=== PATIENT | female | born 1940 | race American Indian/Alaskan Native ===

== ENCOUNTER 2017-04-01 13:58 | Emergency (ER) | payer MEDICARE ==
[2017-04-01 16:16] LABS: Albumin 4.1 g/dL (3.9-5); Albumin/Globulin Ratio 0.9 %; Bilirubin,Total 0.3 mg/dL (0.1-1.2); Calcium 9.6 mg/dL (8.4-10.2); Chloride 104.8 mmol/L (98-107); Potassium 5.6 mmol/L (3.6-5.0); Total Protein 8.7 g/dL (6.3-8.2)
[2017-04-01 16:22] LABS: Basophils % (Auto) 0.5 % (0.0-1.8); Eosinophils % (Auto) 1.8 % (0.0-4.3); Hematocrit 34.3 % (30.3-42.9); Hemoglobin 11.4 gm/dl (10.1-14.3); Mean Corpuscular HGB Conc 33 % (30-34); Mean Corpuscular Volume 76 fl (79-97); Platelet Count 240 K/mm3 (140-440); Red Blood Count 4.54 M/mm3 (3.65-5.03); Red Cell Distribution Width 19.2 % (13.2-15.2); White Blood Count 9.1 K/mm3 (4.5-11.0)
[2017-04-01 16:25] LABS: Mean Corpuscular Hemoglobin 25 pg (28-32)
[2017-04-01] MEDS ORDERED: LOPRESSOR IV ONE (21:04)
[2017-04-01 21:11] LABS: Bilirubin,Urine NEG (Negative); Blood,Urine SM (Negative); Ketones,Urine NEG (Negative); Leukocyte Esterase,Urine NEG (Negative); Nitrite,Urine NEG (Negative); Urobilinogen,Urine < 2.0 mg/dL (<2.0)
[2017-04-01] MEDS ORDERED: CATAPRES PO ONE (21:49)
--- NOTE | 2017-04-01 21:56 | Emergency Department Report ---
ED Female HPI - General Chief complaint: Urogenital-Female Stated complaint: INCONTINENCE ISSUE Time Seen by Provider: 04/01/17 20:45 Source: family Mode of arrival: Ambulatory Limitations: Other - History of Present Illness MD Complaint: dysuria -: Gradual, days(s) (3) Location: other (none) Radiation: other (none) Severity: mild Severity scale (0 -10): 2 Quality: cramping Consistency: intermittent Worsens with: urination Are you Now?: No Associated Symptoms: denies other symptoms - Related Data Sexually active: No Previous Rx's Medication Instructions Recorded Last Taken Type Cephalexin [Keflex] 500 mg PO Q12HR #14 cap 04/01/17 Unknown Rx Allergies Allergy/AdvReac Type Severity Reaction Status Date / Time No Known Allergies Allergy Verified 04/01/17 15:30 ED Review of Systems ROS: Stated complaint: INCONTINENCE ISSUE Other details as noted in HPI Comment: All other systems reviewed and negative Respiratory: no symptoms reported Endocrine: no symptoms reported Gastrointestinal: other (none) Genitourinary: urgency, dysuria ED Past Medical Hx - Past Medical History Previous Medical History?: Yes Hx Hypertension: Yes Hx Diabetes: Yes Additional medical history: 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 - Surgical History Past Surgical History?: Yes - Social History Smoking Status: Former Smoker - Medications Home Medications: Home Medications Medication Instructions Recorded Confirmed Last Taken Type Cephalexin [Keflex] 500 mg PO Q12HR #14 cap 04/01/17 Unknown Rx ED Physical Exam - General Limitations: Other (deaf) General appearance: in no apparent distress - Head Head exam: Present: atraumatic, normocephalic - Eye Eye exam: Present: normal appearance, PERRL - ENT ENT exam: Present: normal exam, normal orophraynx - Neck Neck exam: Present: normal inspection - Respiratory Respiratory exam: Present: normal lung sounds bilaterally - Cardiovascular Cardiovascular Exam: Present: regular rate, normal rhythm - GI/Abdominal GI/Abdominal exam: Present: soft, normal bowel sounds - Rectal Rectal exam: Present: deferred - Extremities Exam Extremities exam: Present: normal inspection - Back Exam Back exam: Present: normal inspection - Neurological Exam Neurological exam: Present: alert, oriented X3, CN II-XII intact - Skin Skin exam: Present: warm, dry ED Course Vital Signs 04/01/17 04/01/17 04/01/17 15:30 20:45 21:47 Temperature 98.3 F Pulse Rate 81 70 69 Respiratory 18 20 18 Rate Blood Pressure 210/74 Blood Pressure 186/58 182/56 [Right] O2 Sat by Pulse 100 100 99 Oximetry ED Medical Decision Making - Lab Data Result diagrams: 04/01/17 15:42 04/01/17 15:42 Critical care attestation.: If time is entered above; I have spent that time in minutes in the direct care of this critically ill patient, excluding procedure time. ED Disposition Clinical Impression: Acute cystitis Disposition: DC-01 TO HOME OR SELFCARE Is pt being admited?: No Does the pt Need Aspirin: No Condition: Stable Prescriptions: Cephalexin [Keflex] 500 mg PO Q12HR #14 cap Referrals: RADHA VARGAS MD [Primary Care Provider] - 3-5 Days
[2017-04-01 22:27] VITALS: BP 191/62
== END 2017-04-01 22:20 | disposition home or self-care (01) ==
LOC: ED 13:58
DX: N30.00 Acute cystitis without hematuria (principal); I10 Essential (primary) hypertension; E11.9 Type 2 diabetes mellitus without complications; Z86.73 Personal history of transient ischemic attack (TIA), and cerebral infarction without residual deficits; Z87.891 Personal history of nicotine dependence
CPT/HCPCS: 36415; 80053; 81001; 83690; 85025; 99283

== ENCOUNTER 2018-10-04 10:09 | Emergency (ER) | payer MEDICARE ==
--- NOTE | 2018-10-04 10:27 | Emergency Department Report ---
HPI - General Time Seen by Provider: 10/04/18 10:18 - HPI HPI: Room 21 The patient is 78-year-old female presenting with chief complaint of cardiac arrest. Per EMS the patient complained of "indigestion" last night. This morning the patient was witnessed to collapse. EMS was called and arrived on scene at 07:38. EMS states upon arrival the patient was in asystole. ACLS protocols were initiated and the patient was initially intubated with an ET tube later changed to a Combitube prior to arrival. Upon arrival to the ED the Combitube was removed and the patient was intubated by myself with a 7.0 ET tube. ACLS protocols were continued but there was no return of spontaneous circulation. Location: Cardiovascular system Duration: [See above] Quality: Asystole Severity: Severe Modifying factors: [see above] Context: [see above] Mode of transportation: [not driving] ED Past Medical Hx - Past Medical History Hx Hypertension: Yes Hx Diabetes: Yes Additional medical history: CVA 2003 unsteady gait. 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, hypercholesterolemia - Surgical History Past Surgical History?: No - Family History Family history: no significant - Social History Smoking Status: Unknown if ever smoked - Medications Home Medications: Home Medications Medication Instructions Recorded Confirmed Last Taken Type cephALEXin [Keflex] 500 mg PO Q12HR #14 cap 04/01/17 Unknown Rx ED Review of Systems ROS: Stated complaint: CARDIAC ARREST Other details as noted in HPI Comment: Unobtainable due to pts medical conditions Physical Exam - Physical Exam Physical Exam: GENERAL: The patient is well-developed well-nourished female lying on stretcher being bagged via Combitube and receiving chest compressions from EMS. [] HEENT: Normocephalic. Atraumatic. NECK: Trachea midline CHEST/LUNGS: No spontaneous respirations. Breath sounds bilaterally after intubation by myself HEART/CARDIOVASCULAR: Normal heart sounds. Idioventricular rhythm on monitor ABDOMEN: Abdomen is soft SKIN: There is no diaphoresis. NEURO: GCS 3T MUSCULOSKELETAL: There is no evidence of acute injury. - Intubation Time Out Performed: No Sedative: none Laryngoscope: Adria Size: 3 ET Tube Size: 7 Tube Secured Depth (cm): 21 Tube Secured Location: lips Tube Placement Confirmation: equal breath sounds bilat, no breath sounds over epi Patient Tolerated Procedure: no complications Intubation Complications: none Critical care attestation.: If time is entered above; I have spent that time in minutes in the direct care of this critically ill patient, excluding procedure time. ED Disposition Clinical Impression: Cardiac arrest Disposition: DC-20 Is pt being admited?: No Does the pt Need Aspirin: No Condition: Poor Referrals: PRIMARY CARE, [Primary Care Provider] - 3-5 Days Time of Disposition: 10:29 (patient )
== END 2018-10-04 12:14 ==
LOC: ED 10:09
CPT/HCPCS: 92950